=== PATIENT | female | born 1955 | race American Indian/Alaskan Native ===

== ENCOUNTER 2019-10-09 06:28 | Day surgery (SDC) | payer MEDICARE ==
[~2019-10-09 06:28] MED LIST: WATER FOR IRRIG STERILE 1,500 ML BOTTLE IR ONE; ceFAZolin/Water 2 GM/20 ML 2 GM/20 ML SYRINGE IV NR
--- NOTE | 2019-10-09 07:22 | Anesthesia Day of Surgery ---
Anesthesia Day of Surgery - Day of Surgery Patient Examined: Yes Patient H&P Reviewed: Yes Patient is NPO: Yes Beta Blockers: Yes
--- NOTE | 2019-10-09 07:26 | Anesthesia Consultation ---
Anesthesia Consult and Med Hx Date of service: 10/09/19 - Airway Anesthetic Teeth Evaluation: Good, Partials ROM Head & Neck: Adequate Mental/Hyoid Distance: Adequate Mallampati Class: Class III Intubation Access Assessment: Probably Good - Pre-Operative Health Status ASA Pre-Surgery Classification: ASA4 Proposed Anesthetic Plan: General - Pulmonary Hx Asthma: Yes (MAINT. NEB; NEBS) Hx Respiratory Symptoms: Yes (Pulmonary HTN) SOB: Yes (Severe CAMPOVERDE. Unable to climb stairs. HX PE) COPD: Yes (Resp failure [id number] and intubated X 2 days) Home Oxygen Therapy: Yes Hx Sleep Apnea: Yes - Cardiovascular System Hx Hypertension: Yes (9-10 YRS. ECHO [id number]) - Central Nervous System Hx Psychiatric Problems: No - Endocrine Hx Renal Disease: Yes (Stage 3) Hx Insulin Dependent Diabetes: Yes Hx Thyroid Disease: Yes Hx Hypothyroidism: Yes - Other Systems Hx Alcohol Use: No Hx Substance Use: No Hx Obesity: Yes
[2019-10-09] MEDS ORDERED: ONDANSETRON 4 MG/2 ML INJ IV PRN (08:00)
[2019-10-09] MEDS ORDERED: CELECOXIB 200 MG CAP PO NR (08:00)
[2019-10-09] MEDS ORDERED: LACTATED RINGERS 1,000 ML IV SCH (08:00)
[2019-10-09] MEDS ORDERED: MAGNESIUM OXIDE 400 MG TAB PO NR (08:00)
[2019-10-09] MEDS ORDERED: fentaNYL 100 MCG/2 ML INJ IV PRN (08:00)
[2019-10-09] MEDS ORDERED: ACETAMINOPHEN 325 MG TAB PO NR (08:00)
[2019-10-09] MEDS ORDERED: FAMOTIDINE 20 MG TAB PO NR (08:00)
[2019-10-09] MEDS ORDERED: LIDOCAINE (1%) 10 MG/1 ML VIAL 20 ML MDV ONE ×2 (08:31→13:27)
[2019-10-09] MEDS ORDERED: BUPIVACAINE-EPINEPHRINE/PF 0.5%-1:200,000 (30 ML) VIAL INFILTRATI ONE (09:17)
--- NOTE | 2019-10-09 09:36 | Mammography Report ---
RIGHT BREAST NEEDLE LOCALIZATION AND HOOKWIRE PLACEMENT History: RT BREAST calcifications Comparison: 08/22/2019, 06/24/2019 and 11/26/2018 Procedure: Consent for the procedure was obtained by Dr. Ledezma. The breast was prepped in sterile fashion. Utilizing digital mammographic technique and 1% lidocaine for anesthesia, a 10 cm Cheek n eedle/hookwire was placed from a medial approach to localize a group of calcifications. Satisfactory placement was confirmed with an orthogonal view. The hookwire was deployed and the was needle removed . The patient tolerated the procedure well and there were no apparent complications.. IMPRESSION: Successful uncomplicated hookwire placement right breast. Signer Name: Dick Arreguin MD Signed: 10/09/2019 9:31 AM Workstation Name: [id number]
[2019-10-09] MEDS ORDERED: MIDAZOLAM 2 MG/2 ML INJ ONE (10:30)
[2019-10-09] MEDS ORDERED: ALBUTEROL 2.5 MG/3 ML NEBU IH NR (11:30)
[2019-10-09] MEDS ORDERED: propofoL 200 MG/20 ML VIAL IV ONE (11:38)
[2019-10-09] MEDS ORDERED: fentaNYL 100 MCG/2 ML INJ ONE (11:38)
[2019-10-09] MEDS ORDERED: LIDOCAINE MPF (2%) 20 MG/1 ML VIAL 5 ML ONE (11:38)
[2019-10-09] MEDS ORDERED: ROCURONIUM 50 MG/5 ML INJ IV ONE (11:51)
[2019-10-09] MEDS ORDERED: SUCCINYLCHOLINE CHLORIDE 200 MG/10 ML INJ MDV ONE (11:59)
[2019-10-09] MEDS ORDERED: PHENYLEPHRINE/NS 1,000 MCG/10 ML SYRINGE (OR USE) IV ONE (12:34)
[2019-10-09] MEDS ORDERED: ePHEDrine SULFATE 50 MG/1 ML INJ ONE (12:36)
[2019-10-09] MEDS ORDERED: SODIUM CHLORIDE 0.9% 100 ML ONE (12:36)
[2019-10-09] MEDS ORDERED: SUGAMMADEX SODIUM 200 MG/2 ML VIAL IV ONE (12:46)
[2019-10-09] MEDS ORDERED: WATER FOR IRRIG STERILE 1,500 ML BOTTLE IR ONE (13:24)
[2019-10-09] MEDS ORDERED: BUPIVACAINE/PF (0.25%) 2.5 MG/ML 30 ML VIAL INFILTRATI ONE ×2 (13:27→13:32)
[2019-10-09] MEDS ORDERED: LIDOCAINE (1%) 10 MG/1 ML VIAL 20 ML MDV INFILTRATI ONE (13:32)
--- NOTE | 2019-10-09 13:51 | Mammography Report ---
SPECIMEN RADIOGRAPH RIGHT BREAST INDICATION: POST EXC BX. Calcifications. COMPARISON: 08/22/2019 and 06/24/2019 FINDINGS: The targeted calcifications and a hookwire are identified within the specimen. IMPRESSION: 1. Excision of the targeted calcifications. Signer Name: Dick Arreguin MD Signed: 10/09/2019 1:46 PM Workstation Name: [id number]
--- NOTE | 2019-10-09 14:17 | Short Stay Summary ---
Short Stay Documentation Date of service: 10/09/19 - History H&P: obtained from office - Allergies and Medications Current Medications: Allergies lisinopril Allergy (Verified 10/02/19 10:09) Anaphylaxis Home Medications Medication Instructions Recorded Confirmed Last Taken Type Albuterol Sulfate [Proair 2 puff IH Q4H PRN 10/02/19 10/02/19 10/09/19 05:00 History Respiclick] Apixaban [Eliquis] 5 mg PO BID 10/02/19 10/09/19 10/06/19 History Benzonatate [Tessalon Perles] 100 mg PO Q8HR 10/02/19 10/02/19 10/08/19 History Budesonide/Formoterol Fumarate 10.2 gm IH BID 10/02/19 10/02/19 10/09/19 05:00 History [Symbicort 160-4.5 Mcg Inhaler] Chlorthalidone [Thalitone] 2 tab PO BID 10/02/19 10/02/19 10/08/19 History Cholecalciferol Vit D3 [Vitamin D3 1,000 unit PO QDAY 10/02/19 10/02/19 10/08/19 History 1,000 UNIT TAB] Famotidine [Pepcid] 20 mg PO BID 10/02/19 10/02/19 10/08/19 History Felodipine [Felodipine ER] 10 mg PO DAILY 10/02/19 10/02/19 10/09/19 05:00 History Ferrous Sulfate [Iron 325 MG] 1 tab PO DAILY 10/02/19 10/02/19 10/08/19 History Insulin NPH/Regular [Novolin 70/30] 50 unit SUB-Q BID 10/02/19 10/02/19 10/08/19 History Ipratropium/Albuterol Sulfate 1 ampul IH Q8HR 10/02/19 10/02/19 10/08/19 History [DUONEB *Not for PRN Use*] Levothyroxine Sodium [Synthroid] 200 mcg PO QAM 10/02/19 10/02/19 10/08/19 History Levothyroxine [Synthroid] 25 mcg PO QAM 10/02/19 10/02/19 Unknown History Magnesium Oxide [Mag-Ox] 400 mg PO QDAY 10/02/19 10/02/19 10/08/19 History Montelukast [Singulair] 10 mg PO QPM 10/02/19 10/02/19 10/08/19 History Nebivolol HCl [Bystolic] 1 tab PO DAILY 10/02/19 10/02/19 10/09/19 05:00 History Simvastatin 80 mg PO DAILY 10/02/19 10/02/19 10/08/19 History HYDROcodone/APAP 5-325 [[place] 1 each PO Q6HR PRN #12 tablet 10/09/19 Unknown Rx 5/325] cephALEXin [Keflex] 500 mg PO Q12HR #10 cap 10/09/19 Unknown Rx Active Medications Acetaminophen (Tylenol) 650 mg PO ONCE NR Stop: 10/09/19 18:00 Last Admin: 10/09/19 09:30 Dose: 650 mg Documented by: Celecoxib (Celebrex) 200 mg PO PREOP NR Stop: 10/09/19 18:00 Last Admin: 10/09/19 09:30 Dose: 200 mg Documented by: Famotidine (Pepcid) 20 mg PO PREOP NR Stop: 10/09/19 18:00 Last Admin: 10/09/19 09:30 Dose: 20 mg Documented by: Fentanyl (Sublimaze) 50 mcg IV Q5MIN PRN PRN Reason: Pain , Severe (7-10) Stop: 10/09/19 15:00 Last Admin: 10/09/19 10:36 Dose: 50 mcg Documented by: Cefazolin Sodium (Ancef/Sterile Water 2 Gm/20 Ml) 2 gm in 20 mls @ 80 mls/hr IV PREOP NR; Protocol Stop: 10/09/19 16:00 Lactated Ringer's (Lactated Ringers) 1,000 mls @ 100 mls/hr IV DIRECT ROSA Last Admin: 10/09/19 09:45 Dose: 100 mls/hr Documented by: Magnesium Oxide (Mag-Ox) 400 mg PO ONCE NR Stop: 10/09/19 18:00 Last Admin: 10/09/19 09:30 Dose: 400 mg Documented by: Ondansetron HCl (Zofran) 4 mg IV ONCE PRN PRN Reason: Nausea And Vomiting Stop: 10/09/19 15:00 - Brief post op/procedure progress note Date of procedure: 10/09/19 Pre-op diagnosis: Right breast indeterminate calcifications Post-op diagnosis: same Procedure: Right needle localization excisional biopsy Anesthesia: GETA Findings: Right breast calcifications present Surgeon: FERNANDEZ ADAME Estimated blood loss: minimal Pathology: list Specimen disposition: to lab Condition: stable - Disposition Condition at discharge: Good Disposition: DC-01 TO HOME OR SELFCARE Short Stay Discharge Plan Activity: other (no heavy lifting) Diet: regular Wound: keep clean and dry (may showerin 48 hours; no baths or pools; wear breast binder) Follow up with: ANN HOLLINS NP-C [Primary Care Provider] - 7 Days FERNANDEZ ADAME MD [Staff Physician] - 7 Days Prescriptions: cephALEXin [Keflex] 500 mg PO Q12HR #10 cap HYDROcodone/APAP 5-325 [[place] 5/325] 1 each PO Q6HR PRN #12 tablet PRN Reason: Pain
--- NOTE | 2019-10-09 14:21 | Operative Report ---
Operative Report Operative Report: October 09, 2019 Preoperative diagnosis: Right breast lower inner quadrant indeterminate microcalifications Postoperative diagnosis: Same Procedure: Right needle localization excisional biopsy Surgeon: María Elena Ledezma MD Branch Controller: Dr. Chu Anesthesia: General Findings: Right breast excisional biopsy with microcalicifications within radiograph specimen Complications: None EBL: Minimal Disposition: PACU in good condition Indications for operative procedure: This is a 64 year old lady with a personal history of left breast cancer and right breast lower inner quadrant indeterminate microcalifications. Patient has been followed closely for right breast mircrocalifications with recent dianostic mammogram with findings of increase in number of microcalcifications and more pleomorphic. Recommendations were to proceed with a right stereotactic biopsy but given her body habitus she is not a canidate. Recommendations were to proceed with an excisional biopsy to rule out malignancy. She wished to proceed with the above procedure. Procedure in detail: Anesthesia placed right pectoral block. Patient was then taken to the operating room. Gen. anesthesia was administered. The right breast was prepped and draped in the normal sterile operative fashion. Timeout was performed. The wire was located within the lower inner quadrant. Attention was then taken towards the right breast. Skin incision was made with a 10 blade knife and dissection taken down to subcutaneous tissues. First began raising of the superior flap with the wire removed from the skin and then dissection taken down posteriorly, followed by raising of the inferior flap, medial flap and lateral flap with all flaps taken down posteriorly. The breast area of concern was appropriately removed posteriorly with the aid of the Bovie cautery. Specimen was marked and then sent to pathology and radiology; radiograph specim en with microcalifications of concern present. Breast cavity was irrigated and hemostasis was obtained. The posterior deep breast tissues were approximated and closed using interrupted 3-0 Vicryl. The subcutaneous tissues were approximated and closed using interrupted 3-0 Vicryl followed by closing of the skin with a running 4-0 Monocryl and skin affix. The patient tolerated surgery very well and she was awaken from anesthesia without any complication and transported to PACU in good condition.
[2019-10-09] MEDS ORDERED: HYDROcodone/ACETAMINOPHEN 5-325 MG TAB PO PRN (14:34)
[2019-10-09 15:01] VITALS: BP 127/76
--- NOTE | 2019-10-09 16:45 | Post Anesthesia Evaluation ---
- Post Anesthesia Evaluation Patient Participated: Yes Airway Patent: Yes Stable Respiratory Function: Yes (2L NC (baseline home O2 requirement)) Nausea/Vomiting: No Temp > 96.8F: Yes Pain Manageable: Yes Adequeate Hydration: Yes Anesthesia Complications: No
== END 2019-10-09 15:55 | disposition home or self-care (01) ==
LOC: OR 06:28
PROVIDERS: ATTEND Surgery
DX: R92.0 Mammographic microcalcification found on diagnostic imaging of breast (principal); D24.1 Benign neoplasm of right breast; E66.9 Obesity, unspecified; K21.9 Gastro-esophageal reflux disease without esophagitis; M19.90 Unspecified osteoarthritis, unspecified site; E11.9 Type 2 diabetes mellitus without complications; E03.9 Hypothyroidism, unspecified; E78.00 Pure hypercholesterolemia, unspecified; I10 Essential (primary) hypertension; J44.9 Chronic obstructive pulmonary disease, unspecified; G47.30 Sleep apnea, unspecified; Z86.711 Personal history of pulmonary embolism; Z68.45 Body mass index [BMI] 70 or greater, adult; Z85.3 Personal history of malignant neoplasm of breast; Z79.899 Other long term (current) drug therapy; Z98.890 Other specified postprocedural states; Z88.8 Allergy status to other drugs, medicaments and biological substances
CPT/HCPCS: 19125; 19281; 76098; 82962; 88307; J0330; J0690; J2250; J2370; J2405; J2704; J3010; J7120

== ENCOUNTER 2020-11-02 08:57 | Outpatient (CLI) | payer MEDICARE ==
--- NOTE | 2020-11-02 10:23 | Mammography Report ---
DIGITAL SCREENING MAMMOGRAM WITH CAD, 11/02/2020 CLINICAL INFORMATION / INDICATION: Routine screening mammography. TECHNIQUE: Digital bilateral 2D mammography was obtained in the craniocaudal and mediolateral obliqu e projections. This examination was interpreted with the benefit of Computer-Aided Detection analysis . COMPARISON: 10/09/2019, 08/22/2019, 06/24/2019, 11/26/2018, 06/02/2017 FINDINGS: Breast Density: The breasts are almost entirely fatty. No new dominant mass, suspicious calcifications, or architectural distortion in either breast. Postoperative changes are again noted bilaterally with a stable 12-1:00 left breast mass, likely repr esenting a seroma. Collateral benign-appearing calcifications are unchanged. IMPRESSION: No mammographic evidence of malignancy. Follow up recommendation: Routine yearly BI-RADS Category 2: Benign. A "normal" or negative report should not discourage follow up or biopsy of a clinically significant f inding. A written summary of these findings will be mailed to the patient. The patient will be entered into a mammography reporting system which will generate a reminder letter for the patient's next appointmen t at the appropriate interval. The [employer] recommends yearly mammograms starting at age 40 and continuing as l hermelinda as a woman is in good health. Breast MRI is recommended for women with an approximate 20-25% or greater lifetime risk of breast cancer, including women with a strong family history of breast or ova julianna cancer or who have been treated for Hodgkin's disease. Signer Name: Vinnie Rivas MD Signed: 11/02/2020 10:19 AM Workstation Name: [id number]
== END 2020-11-02 08:58 | disposition home or self-care (01) ==
LOC: SPVWC 08:57
PROVIDERS: ATTEND Surgery
DX: Z12.31 Encounter for screening mammogram for malignant neoplasm of breast (principal); N64.89 Other specified disorders of breast
CPT/HCPCS: 77067